=== PATIENT | female | born 1985 | race Caucasian/White ===

== ENCOUNTER 2016-12-21 22:40 | Emergency (ER) | payer MEDICAID ==
[2016-12-21] MEDS ORDERED: Sodium Chloride 0.9% 10 ML Syringe FLUSH PRN (23:12)
[2016-12-21] MEDS ORDERED: Sodium Chloride 0.9% 2.5 ML Syringe FLUSH PRN (23:12)
--- NOTE | 2016-12-21 23:23 | EDM.PDOC ---
ED HPI GI/ABDOMINAL - General Chief Complaint: Abdominal Pain Stated Complaint: GALLBLADDER PAIN Time Seen by Provider: 12/21/16 23:04 Source of Information: Reports: Patient History Limitations: Reports: No limitations - History of Present Illness INITIAL COMMENTS - FREE TEXT/NARRATIVE: History of present illness: [] Review of systems: 31-year-old female with a history of tubal ligation 10 days ago patient was in [place] expressed abdominal pain and had a CT and ultrasound of the abdomen which diagnosed her disease. Patient was stable and referred for outpatient followup when she returned home here shows an appointment tomorrow with her primary care for reevaluation and referral to surgery. Tonight she experienced identical symptoms of right upper quadrant pain after eating. She has nausea and vomiting. Denies fevers chills sweats or shaking chills. No lower abdominal tenderness specifically no right lower quadrant tenderness. Possibility of viable as she has had a tubal ligation in no diarrhea and normal urinary habits. No vaginal discharge or bleeding As per history of present illness and below otherwise all systems reviewed and negative. Past medical history: As per history of present illness and as reviewed below otherwise noncontributory. Surgical history: As per history of present illness and as reviewed below otherwise noncontributory. Social history: No reported history of drug or alcohol abuse. Family history: As per history of present illness and as reviewed below otherwise noncontributory. Physical exam: HEENT: Atraumatic, normocephalic, pupils reactive, negative for conjunctival pallor or scleral icterus, mucous membranes moist, throat clear, neck supple, nontender, trachea midline. Lungs: Clear to auscultation, breath sounds equal bilaterally, chest nontender. Heart: S1S2, regular, negative for clicks, rubs, or JVD. Abdomen: Soft, nondistended, positive right upper quadrant tenderness no guarding or rebound. Positive bowel sounds. Nondistended no mass or megaly palpable Negative for masses or hepatosplenomegaly. Negative for costovertebral tenderness. Pelvis: Stable nontender. Genitourinary: Deferred. Rectal: Deferred. Extremities: Atraumatic, negative for cords or calf pain. Neurovascular unremarkable. Neuro: Awake, alert, oriented. Motor and sensory unremarkable throughout. Exam nonfocal. Diagnostics: [] Therapeutics: [] Impression: [] Plan: [] Definitive disposition and diagnosis as appropriate pending reevaluation and review of above. - Related Data Allergies/ADRs: Allergies Allergy/AdvReac Type Severity Reaction Status Date / Time No Known Allergies Allergy Verified 12/21/16 23:15 Home Meds: Home Meds Sertraline HCl [Zoloft] 20 mg PO DAILY 12/21/16 [History] ED ROS GENERAL - Review of Systems Review Of Systems: See Below (Per history of present illness) ED EXAM, GI/ABD - Physical Exam Exam: See Below (Per history of present illness) Course - Vital Signs Text/Narrative:: Known history of gallbladder disease now with signs and symptoms consistent with gallbladder colic. Patient alert well-appearing no acute distress. Afebrile. Labs and ultrasound pending to reevaluate and rule out need for acute surgical intervention. IV fluids antiemetic anti-inflammatory meds ordered. Or sound completely negative for gallbladder or pancreatic abnormality. Comment bile duct normal. Labs totally unremarkable except late phase of her than 400. On reevaluation the patient entirely nontender in the entire abdomen specifically in the epigastrium and right upper quadrant. She is in no acute distress has normal vital signs she is smiling and comfortable with no complaints. Patient is very clear she's never been diagnosed with chronic pancreatitis or even initial set of pancreatitis. However on discussion with patient and her mother prior to discharge both offer that she's had recurrent episodes of upper abdominal pain that were never evaluated over the last several years. Given that her gallbladder is benign is not possible to have been caused by biliary colic. Patient aware that the only possibility is that she has chronic pancreatitis making her lipase greater than 400 despite the fact that she is not vomiting and nontender all. 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 eladia wallace is aware of history and findings and recommends that patient does not require further imaging or followup for HIDA were MRCP and that she has no evidence of obstructive disease and her chronic alcohol abuse explains her chronic pancreatitis etiology. Patient and mom agree with outpatient followup. Strict return precautions given Last Recorded V/S: Last Vital Signs Temp 36.9 C 12/22/16 02:20 Pulse 72 12/22/16 02:20 Resp 16 12/22/16 02:20 BP 114/67 12/22/16 02:20 Pulse Ox 98 12/22/16 02:20 - Orders/Labs/Meds Orders: Active Orders 24 hr Category Date Time Status Gallbladder [Abdomen Ltd] [US] Stat Exams 12/21/16 23:16 Taken Peripheral IV Insertion Adult [OM.PC] Stat Oth 12/21/16 23:13 Ordered Labs: Laboratory Tests 12/21/16 12/21/16 12/21/16 Range/Units 23:33 23:33 23:40 WBC 10.69 (4.0-11.0) K/uL RBC 4.53 (4.30-5.90) M/uL Hgb 14.2 (12.0-16.0) g/dL Hct 42.9 (36.0-46.0) % MCV 94.7 (80.0-98.0) fL MCH 31.3 (27.0-32.0) pg MCHC 33.1 (31.0-37.0) g/dL RDW Std Deviation 47.2 (28.0-62.0) fl RDW Coeff of Jermaine 14 (11.0-15.0) % Plt Count 228 (150-400) K/uL MPV 10.00 (7.40-12.00) fL Neut % (Auto) 86.3 H (48.0-80.0) % Lymph % (Auto) 6.0 L (16.0-40.0) % Hayes % (Auto) 6.8 (0.0-15.0) % Eos % (Auto) 0.7 (0.0-7.0) % Baso % (Auto) 0.2 (0.0-1.5) % Neut # 9.2 H (1.4-5.7) K/uL Lymph # 0.6 (0.6-2.4) K/uL Hayes # 0.7 (0.0-0.8) K/uL Eos # 0.1 (0.0-0.7) K/uL Baso # 0.0 (0.0-0.1) K/uL Nucleated RBC % 0.0 /100WBC Nucleated RBCs # 0 K/uL Sodium (136-146) mmol/L Potassium (3.5-5.1) mmol/L Chloride (98-110) mmol/L Carbon Dioxide (21-31) mmol/L BUN (6.0-23.0) mg/dL Creatinine (0.6-1.5) mg/dL Est Cr Clr Drug Dosing mL/min Estimated GFR (MDRD) ml/min Glucose (60-110) mg/dL Calcium (8.8-10.8) mg/dL Total Bilirubin (0.1-1.5) mg/dL AST (5-40) IU/L ALT (8-54) IU/L Alkaline Phosphatase (40-150) Total Protein (6.0-8.0) g/dL Albumin (3.5-5.0) g/dL Globulin (2.0-3.5) g/dL Albumin/Globulin Ratio (1.3-2.8) Lipase (7-80) U/L Urine Color YELLOW Urine Appearance CLEAR Urine pH 7.5 (5.0-8.0) Ur Specific [place] 1.010 (1.001-1.035) Urine Protein TRACE (NEGATIVE) mg/dL Urine Glucose (UA) NEGATIVE (NEGATIVE) mg/dL Urine Ketones 15 H (NEGATIVE) mg/dL Urine Occult Blood NEGATIVE (NEGATIVE) Urine Nitrite NEGATIVE (NEGATIVE) Urine Bilirubin NEGATIVE (NEGATIVE) Urine Urobilinogen 0.2 (<2.0) EU/dL Ur Leukocyte Esterase TRACE (NEGATIVE) Urine RBC 0-2 (0-2/HPF) Urine WBC 2-4 (0-5/HPF) Ur Epithelial Cells RARE (NONE-FEW) Urine Bacteria RARE (NEGATIVE) Urine Mucus MODERATE (NONE-MOD) Urine HCG, Qual NEGATIVE (NEGATIVE) 12/21/16 Range/Units 23:40 WBC (4.0-11.0) K/uL RBC (4.30-5.90) M/uL Hgb (12.0-16.0) g/dL Hct (36.0-46.0) % MCV (80.0-98.0) fL MCH (27.0-32.0) pg MCHC (31.0-37.0) g/dL RDW Std Deviation (28.0-62.0) fl RDW Coeff of Jermaine (11.0-15.0) % Plt Count (150-400) K/uL MPV (7.40-12.00) fL Neut % (Auto) (48.0-80.0) % Lymph % (Auto) (16.0-40.0) % Hayes % (Auto) (0.0-15.0) % Eos % (Auto) (0.0-7.0) % Baso % (Auto) (0.0-1.5) % Neut # (1.4-5.7) K/uL Lymph # (0.6-2.4) K/uL Hayes # (0.0-0.8) K/uL Eos # (0.0-0.7) K/uL Baso # (0.0-0.1) K/uL Nucleated RBC % /100WBC Nucleated RBCs # K/uL Sodium 140 (136-146) mmol/L Potassium 4.0 (3.5-5.1) mmol/L Chloride 100 (98-110) mmol/L Carbon Dioxide 27 (21-31) mmol/L BUN 16 (6.0-23.0) mg/dL Creatinine 0.8 (0.6-1.5) mg/dL Est Cr Clr Drug Dosing 90.84 mL/min Estimated GFR (MDRD) > 60.0 ml/min Glucose 96 (60-110) mg/dL Calcium 9.0 (8.8-10.8) mg/dL Total Bilirubin 0.7 (0.1-1.5) mg/dL AST 26 (5-40) IU/L ALT 17 (8-54) IU/L Alkaline Phosphatase 41 (40-150) Total Protein 7.1 (6.0-8.0) g/dL Albumin 4.2 (3.5-5.0) g/dL Globulin 2.9 (2.0-3.5) g/dL Albumin/Globulin Ratio 1.4 (1.3-2.8) Lipase 424 H (7-80) U/L Urine Color Urine Appearance Urine pH (5.0-8.0) Ur Specific [place] (1.001-1.035) Urine Protein (NEGATIVE) mg/dL Urine Glucose (UA) (NEGATIVE) mg/dL Urine Ketones (NEGATIVE) mg/dL Urine Occult Blood (NEGATIVE) Urine Nitrite (NEGATIVE) Urine Bilirubin (NEGATIVE) Urine Urobilinogen (<2.0) EU/dL Ur Leukocyte Esterase (NEGATIVE) Urine RBC (0-2/HPF) Urine WBC (0-5/HPF) Ur Epithelial Cells (NONE-FEW) Urine Bacteria (NEGATIVE) Urine Mucus (NONE-MOD) Urine HCG, Qual (NEGATIVE) Meds: Medications Discontinued Medications Generic Name Dose Route Start Last Admin Trade Name Nakia PRN Reason Stop Dose Admin Sodium Chloride 1,000 mls @ 999 mls/hr 12/21/16 23:15 12/21/16 23:34 Normal Saline IV 999 mls/hr ASDIRECTED RUTH Administration Ketorolac Tromethamine 30 mg 12/21/16 23:12 12/21/16 23:35 Toradol IVPUSH 12/21/16 23:13 30 mg ONETIME ONE Administration Ondansetron HCl 4 mg 12/21/16 23:17 12/21/16 23:34 Zofran IVPUSH 12/21/16 23:18 4 mg ONETIME ONE Administration Sodium Chloride 10 ml 12/21/16 23:12 Saline Flush FLUSH ASDIRECTED PRN Keep Vein Open Sodium Chloride 2.5 ml 12/21/16 23:12 Saline Flush FLUSH ASDIRECTED PRN Keep Vein Open Departure - Departure Time of Disposition: 02:01 Disposition: Home, Self-Care 01 Condition: good Clinical Impression: Abdominal pain, Pancreatitis, chronic Instructions: Abdominal Pain, Adult, [id number] Referrals: PCP,None [Primary Care Provider] - Forms: ED Department Discharge Additional Instructions: The result of-year-old sounds are completely normal gallbladder tonight with no stones or evidence of blockage infection or inflammation. Your labs were completely normal except her lipase was very elevated at 424. Lipase is an enzyme manufactured by the pancreas and this very elevated result is suggestive of pancreatitis. Given that area of your pancreas is not tender at all right now and you have no evidence of inflammation on your ultrasound, suggests that you have chronic pancreatitis which would be a result of excessive alcohol use over a chronic timeframe. Followup with your Dr. discuss your elevated lipase of 424 and this diagnosis of apparent chronic pancreatitis. Return immediately for worsening abdominal pain intractable vomiting or fevers with abdominal pain , new severe or worsening symptoms - My Orders Last 24 Hours: My Active Orders 12/21/16 23:13 Peripheral IV Insertion Adult [OM.PC] Stat 12/21/16 23:16 Gallbladder [Abdomen Ltd] [US] Stat - Assessment/Plan Last 24 Hours: My Active Orders 12/21/16 23:13 Peripheral IV Insertion Adult [OM.PC] Stat 12/21/16 23:16 Gallbladder [Abdomen Ltd] [US] Stat
[2016-12-21] MEDS: Sodium Chloride 0.9% 1,000 ML IV SCH (23:34)
[2016-12-21] MEDS: Ondansetron 4 MG/2 ML SDV IVPUSH ONE (23:34)
[2016-12-21] MEDS: Ketorolac 30 MG/ML SDV IVPUSH ONE (23:35)
[2016-12-22 00:06] LABS: CHLORIDE,CL 100 mmol/L (98-110); SODIUM,NA 140 mmol/L (136-146)
[2016-12-22 02:27] VITALS: BP 114/67
--- NOTE | 2016-12-22 15:02 | US ---
EXAM DATE: 12/21/16 PATIENT'S AGE: 31 Patient: TAMERA ANDRADE Facility: [place], [place] Site . Site : 1985 Study: US Abdomen [id number] 12:34:54 AM Ordering Physician: Waldo Cat Final Report: INDICATION: Right upper quadrant pain. TECHNIQUE: Ultrasound abdomen limited. Sonographic images of the right upper quadrant were obtained using gauthier-scale and color Doppler images. COMPARISON: None. FINDINGS: Liver: Homogeneous in echotexture. No focal lesion. Gallbladder: No stones or sludge. Normal wall thickness. No pericholecystic fluid. Common bile duct: 4 mm. Pancreas: Unremarkable. Right kidney: 12.7 cm in length. Normal echotexture and cortex. No masses, stones, or hydronephrosis. IMPRESSION: Unremarkable right upper quadrant ultrasound. Dictated by Turner Galeana MD @ 12/22/2016 12:40:14 AM Dictated by: Turner Galeana MD @ 12/22/2016 00:40:33 (Electronic Signature) Report Signed by Proxy and Original Signed Document filed in the Medical Record. [facility] DIVISIONKasandra
== END 2016-12-22 02:27 | disposition home or self-care (01) ==
LOC: MW.ED 22:40
DX: K86.1 Other chronic pancreatitis (principal); R10.11 Right upper quadrant pain; Z79.899 Other long term (current) drug therapy
CPT/HCPCS: 36415; 76705; 80053; 81001; 81025; 83690; 85025; 96374; 96375; 99284; J1885; J2405; J7040

== ENCOUNTER 2017-01-18 08:22 | Day surgery (SDC) | payer MEDICAID ==
[~2017-01-18 08:22] MED LIST: Lactated Ringers 1,000 ML IV SCH; Lidocaine 2% 5 ML SDV ONE; Propofol 200 MG/20 ML SDV ONE
--- NOTE | 2017-01-18 08:40 | PCM.PREANE ---
Preanesthetic Assessment - Anesthesia/Transfusion/Family Hx Anesthesia History: Prior Anesthesia Without Reaction Type of Anesthesia Reaction: Other (see below) (none) Family History of Anesthesia Reaction: No Transfusion History: No Prior Transfusion(s) - Review of Systems General: No Symptoms Pulmonary: No Symptoms Cardiovascular: No Symptoms Neurological: No Symptoms Other: Reports: None - Physical Assessment O2 Sat by Pulse Oximetry: 99 Respiratory Rate: 16 Vital Signs: Last Vital Signs Temp 36.6 C 01/18/17 08:27 Pulse 85 01/18/17 08:27 Resp 16 01/18/17 08:27 BP 117/67 01/18/17 08:27 Pulse Ox 99 01/18/17 08:27 Height: 1.65 m Weight: 65.771 kg ASA Class: 2 Mental Status: Alert & Oriented x3 Airway Class: Mallampati = 2 Dentition: Reports: Normal Dentition Thyro-Mental Finger Breadths: 3 Mouth Opening Finger Breadths: 3 ROM/Head Extension: Full Lungs: Clear to auscultation, Normal respiratory effort Cardiovascular: Regular Rate, Regular Rhythm - Allergies Allergies/Adverse Reactions: Allergies Allergy/AdvReac Type Severity Reaction Status Date / Time No Known Allergies Allergy Verified 12/21/16 23:15 - Blood Blood Available: No - Anesthesia Plan Pre-Op Medication Ordered: None - Acknowledgements Anesthesia Type Planned: MAC Pt an Appropriate Candidate for the Planned Anesthesia: Yes Alternatives and Risks of Anesthesia Discussed w Pt/Guardian: Yes Pt/Guardian Understands and Agrees with Anesthesia Plan: Yes PreAnesthesia Questionnaire - Past Health History Medical/Surgical History: Denies Medical/Surgical History Gastrointestinal History: Reports: Other (see below) Other Gastrointestinal History: presently c/o rt upper quad pain that radiates to her back Genitourinary History: Reports: None [employer] History: Reports: PID, 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 History: Reports: Other (see below) Other 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 History: neck and shoulder pain Psychiatric History: Reports: Anxiety, Depression - Infectious Disease History Infectious Disease History: Reports: Chicken pox - Past Surgical History Head Surgeries/Procedures: Reports: None Female Surgical History: Reports: section, Tubal ligation Other Female Surgeries/Procedures: x 4 - SUBSTANCE USE Smoking Status *Q: Current Every Day Smoker (1/2 ppd) Days Per Week of Alcohol Use: 1 Number of Drinks Per Day: 4 Total Drinks Per Week: 4 Recreational Drug Use History: No - HOME MEDS Home Medications: Home Meds Sertraline HCl [Zoloft] 20 mg PO DAILY 12/21/16 [History] Olopatadine [Patanol 0.1% Ophth Soln] 1 drop EYEBOTH BID 01/13/17 [History] Promethazine HCl 1 tab PO ASDIRECTED PRN 01/13/17 [History] - CURRENT (IN HOUSE) MEDS Current Meds: Current Medications Lactated Ringer's (Ringers, Lactated) 1,000 mls @ 125 mls/hr IV ASDIRECTED RUTH Last Admin: 01/18/17 08:32 Dose: 125 mls/hr Discontinued Medications Lidocaine (Xylocaine-Mpf 2%) Confirm Administered Dose 5 ml .ROUTE .STK-MED ONE Stop: 01/18/17 07:27 Propofol (Diprivan 20 Ml) Confirm Administered Dose 400 mg .ROUTE .STK-MED ONE Stop: 01/18/17 07:27
[2017-01-18] MEDS ORDERED: Propofol 200 MG/20 ML SDV ONE (09:24)
--- NOTE | 2017-01-18 09:54 | PCM.OPNOTE ---
- General Post-Op/Procedure Note Date of Surgery/Procedure: 01/18/17 Operative Procedure(s): egd w bx. colonoscopy w bx Findings: see dict [id number] Pre Op Diagnosis: abd pain Post-Op Diagnosis: Same Anesthesia Technique: Moderate sedation Primary Surgeon: Bakari Mario Pathology: egd bx colon random bx Complications: None Condition: Good
[2017-01-18] MEDS: fentaNYL 100 MCG/2 ML SDV IVPUSH PRN ×2 (09:57→10:02)
--- NOTE | 2017-01-18 10:04 | PCM.POSTAN ---
POST ANESTHESIA ASSESSMENT - MENTAL STATUS Mental Status: alert, oriented - RESPIRATORY Respiratory Status: respiratory rate WNL, airway patent, O2 saturation stable - CARDIOVASCULAR CV Status: pulse rate WNL, blood pressure stable - GASTROINTESTINAL GI Status: no symptoms - POST OP HYDRATION Hydration Status: adequate & stable - OBSERVATIONS Free Text/Narrative:: no anesthesia problems
[2017-01-18 10:16] VITALS: BP 104/69
--- NOTE | 2017-01-18 14:04 | OR ---
SURGEON: Bakari Mario MD DATE OF PROCEDURE: 01/18/2017 PREOPERATIVE DIAGNOSIS: Abdominal pain. POSTOPERATIVE DIAGNOSES: Gastritis and hemorrhoids. PROCEDURE PERFORMED: 1. EGD with biopsy. 2. Colonoscopy with biopsy. DESCRIPTION OF PROCEDURE: EGD: The patient was taken to the endoscopy room, and with the FIELD MECHANIC, Diprivan was administered. A well-lubricated EGD scope was gently inserted through the oropharynx, down the esophagus, passing through the gastroesophageal junction, into the stomach. The mucosa was examined upon the passage. Any etiology will be noted. Once in the stomach, we continued to advance to the distal antrum, passed through the pylorus into the second portion of the duodenum. Again, the mucosa was examined for any abnormality and etiology. The scope was then retrieved back to the stomach and then retroflexed to look at the fundus of the stomach. If a biopsy was indicated, we will biopsy the antrum, body, and gastroesophageal junction. The air will be sucked out while the scope is retrieved to reduce the patient's discomfort. The patient tolerated the procedure well. There were no intraoperative complications. Dr. Mario was present through the whole procedure. Prior to surgery, a time-out had been called, the patient identified, procedure identified and antibiotic administered. COLONOSCOPY: The patient was taken to the endoscopy room. A time out was called, patient identified, and procedure identified. Diprivan was then administrated. Patient went from awake to sleep, hearing doctor talking or door closing is normal. Perineum inspection and digital examination were then performed. A well-lubricated colonoscope was gently inserted through the rectum, advanced past the rectosigmoid junction, the descending colon, splenic flexure, transverse colon, hepatic flexure, ascending colon, arrived to the cecum. Cecum was identified as dictated in the finding. Then the scope was carefully withdrawn while attention was paid to the mucosal surface for any abnormality. Air will be sucked out during the scope withdrawal. At the rectum, retroflexed to examine any rectal diseases, fistula or hemorrhoids. During mucosal examination, picture taken and biopsy performed. Patient tolerated procedure well. There were no intraoperative complications, and Dr. Mario was present throughout the whole procedure. FINDING: EGD finding: The patient was easily sedated with FIELD MECHANIC and Diprivan. The patient was soundly snoring. Proximal esophagus was grossly normal in appearance. Distal esophagus shows moderate amount of salmon-colored change consistent with acid reflux. Stomach rugae was normal in appearance, and there was no food particle or bile observed. Antrum was inflamed, and no blood or ulceration observed. Duodenum was grossly normal in appearance, and the scope was retrieved back to the stomach. Retroflexion look at the fundus of stomach, and the patient does have very small hiatal hernia. Biopsy done at antrum, body. GE junction at 40 and sucked out air while scope pulling out. Colonoscopy finding: The patient was easily sedated with FIELD MECHANIC and Diprivan. The patient was soundly snoring. Bowel prep was average with some liquid stool. No semi-formed stool. Colon is rather straightforward, and cecum indicated by ileocecal fold, one-to-one indentation, appendiceal orifice. Light immittance is not observed. Mucosa examined upon scope pulling out. The patient does not have polyp, diverticulosis, mass, inflammation, stricture, ulceration, bleeding, AV malformation observed. The patient does not have external hemorrhoid. The patient does have mild internal hemorrhoids. The patient would benefit from repeat colonoscopy 10 years from today or if clinically indicated otherwise. Thank you for the kind referral. TAMMY / IDANIA /[id number] AHSAN
== END 2017-01-18 10:44 | disposition home or self-care (01) ==
LOC: MW.SDS 08:22
PROVIDERS: ATTEND Surgery
PROC: 0DB48ZX Excision of Esophagogastric Junction, Via Natural or Artificial Opening Endoscopic, Diagnostic (ICD-10-PCS; principal; 2017-01-18)
PROC: 0DB68ZX Excision of Stomach, Via Natural or Artificial Opening Endoscopic, Diagnostic (ICD-10-PCS; 2017-01-18)
PROC: 0DBE8ZX Excision of Large Intestine, Via Natural or Artificial Opening Endoscopic, Diagnostic (ICD-10-PCS; 2017-01-18)
DX: K20.9 Esophagitis, unspecified (principal); K44.9 Diaphragmatic hernia without obstruction or gangrene; K64.4 Residual hemorrhoidal skin tags; K64.8 Other hemorrhoids; F17.210 Nicotine dependence, cigarettes, uncomplicated; Z98.51 Tubal ligation status; Z98.890 Other specified postprocedural states; Z79.899 Other long term (current) drug therapy
CPT/HCPCS: 43239; 45380; 81025; J3010; J7120; 00740; 88305; 88312; J2704

== ENCOUNTER → 2017-01-31 | Outpatient (CLI) | payer MEDICAID ==
--- NOTE | 2017-01-31 14:56 | NM ---
EXAMINATION: Nuclear medicine hepatobiliary study (HIDA) with cholecystokinin (calculation of gallbl adder ejection fraction for function). HISTORY: Abnormal weight loss. PROCEDURE: Following intravenous administration of 3.7 mCi of technetium 99m Choletec, dynamic images were ob tained up to one-hour post injection. This is followed by slow intravenous administration of 1.3 mcg of CCK and additional dynamic images were obtained. Gallbladder ejection fraction is calculated. FINDINGS: The initial dynamic images demonstrates clearance of the tracer from the blood pool with the prompt tracer uptake by the liver. By 15 minutes tracer activity is noted in the gallbladder. The post CCK images demonstrates optimal contraction of the gallbladder with ejection fraction of 89 percent (nor mal is equal or more than 35%). Tracer activity is noted in the small intestine following CCK admini stration. IMPRESSION: 1. Patent cystic and common bile ducts. Normal liver function. 2. Normal gallbladder ejection fraction following CCK administration ( 89 %; normal equal or more t virk 35%).
== END ==
LOC: MW.NM 13:01
PROVIDERS: ATTEND Surgery
DX: R63.4 Abnormal weight loss (principal)
CPT/HCPCS: 78227; A9537; J2805

== ENCOUNTER → 2017-02-14 | Outpatient (CLI) | payer MEDICAID | LOC: MW.CHOBGYN 10:49 | PROVIDERS: ATTEND Nurse Practitioner Women's Health | DX: R10.2 Pelvic and perineal pain (principal); N89.8 Other specified noninflammatory disorders of vagina | CPT/HCPCS: 81001; 81025; 87480; 87491; 87510; 87591; 87660 ==

== ENCOUNTER → 2017-02-16 | Outpatient (CLI) | payer MEDICAID ==
--- NOTE | 2017-02-16 16:09 | US ---
EXAMINATION: Transvaginal pelvic ultrasound HISTORY: Pain COMPARISON: None TECHNIQUE: Grayscale, color Doppler, and spectral Doppler images obtained transvaginally. FINDINGS: The uterus appears normal in size, contour, and echogenicity without a focal uterine mass. Endometrial stripe thickness measures 1.3 cm. Both the left and right ovaries are normal in size, contour and echogenicity demonstrating normal co rodolfo and spectral Doppler flow. No adnexal masses. No significant free pelvic fluid. IMPRESSION: Unremarkable pelvic ultrasound.
== END ==
LOC: MW.US 14:06
PROVIDERS: ATTEND Nurse Practitioner Women's Health
DX: R10.2 Pelvic and perineal pain (principal)
CPT/HCPCS: 76830; 76830-26

== ENCOUNTER 2017-03-10 11:24 | Emergency (ER) | payer MEDICAID ==
[2017-03-10] MEDS ORDERED: Sodium Chloride 0.9% 10 ML Syringe FLUSH PRN (12:14)
[2017-03-10] MEDS ORDERED: Sodium Chloride 0.9% 2.5 ML Syringe FLUSH PRN (12:14)
--- NOTE | 2017-03-10 12:14 | EDM.PDOC ---
ED HPI GENERAL MEDICAL PROBLEM - General Chief Complaint: Abdominal Pain Stated Complaint: PANCREATITIS Time Seen by Provider: 03/10/17 12:08 Source of Information: Reports: Patient History Limitations: Reports: No Limitations - History of Present Illness INITIAL COMMENTS - FREE TEXT/NARRATIVE: HISTORY AND PHYSICAL: []31-year-old female presents with left upper quadrant pain she has known history of pancreatitis History of Present Illness: [Patient was in [place] for her child's dental appointment when the pain started Patient lives in [place] and has a appointment with the specialist for nuclear testing on the of this month] Pancreatitis likely initiated by alcohol intake in the past, she states she has not had anything to drink in several months Review of Systems: As per history of present illness and below otherwise all systems reviewed and negative. Past medical history: As per history of present illness and as reviewed below otherwise noncontributory. Surgical history: As per history of present illness and as reviewed below otherwise noncontributory. Social history: No reported history of drug or alcohol abuse. Family history: As per history of present illness and as reviewed below otherwise noncontributory. Physical exam: Alert and oriented answer questions appropriately denies any alcohol intake denies any cold medicine or similar products HEENT: Atraumatic, normocehpalic, pupils reactive, negative for conjunctival pallor or scleral icterus, mucous membranes moist, throat clear, neck supple, nontender, trachea midline. Lungs: Clear to auscultation, breath sounds equal bilaterally, chest non tender. Heart: S1S2, regular, negative for clicks, rubs, or JVD. Abdomen: Soft, nondistended, tender left upper quadrant. Negative for masses or hepatossplenmegaly. Negative for costovertebral tenderness. Pelvis: Stable nontender. Genitourinary: Deferred. Rectal: Deferred Extremities: Atraumatic, negative for cords or calf pain. Neurovascular unremarkable. Neuro: Awake, alert, oriented. Cranial nerves II through XII unremarkable. Cerebellum unremarkable. Motor and sensory unremarkable throughout. Exam nonfocal. Diagnostics: [CBC CMP amylase lipase ] Therapeutics: [Normal saline] Impression: [Alcohol-induced pancreatitis] Plan: [Clear liquids Nexium 20 mg twice a day] Definitive disposition and diagnosis as appropriate pending reevaluation and review of above. Onset: Today, Sudden Duration: Hour(s): (1), Getting Worse Location: Reports: Abdomen Upper Abdomen Pain Score (Numeric/FACES): 7 - Related Data Allergies Allergy/AdvReac Type Severity Reaction Status Date / Time No Known Allergies Allergy Verified 03/10/17 12:05 Home Meds: Home Meds Sertraline HCl [Zoloft] 20 mg PO DAILY 12/21/16 [History] Promethazine HCl 1 tab PO ASDIRECTED PRN 01/13/17 [History] Ondansetron HCl [Zofran] 4 mg PO BID PRN 03/10/17 [History] oxyCODONE HCl/Acetaminophen [Percocet 10-325 mg Tablet] 10 - 325 mg PO DAILY PRN 03/10/17 [History] Past Medical History - Past Health History Medical/Surgical History: Denies Medical/Surgical History Gastrointestinal History: Reports: Other (See Below) Other Gastrointestinal History: Gallstones Genitourinary History: Reports: None 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, 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 History: Reports: Other (See Below) Other 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 History: neck and shoulder pain Psychiatric History: Reports: Anxiety, Depression - Infectious Disease History Infectious Disease History: Reports: Chicken Pox - Past Surgical History Female Surgical History: Reports: Section Social & Family History - Family History Family Medical History: Noncontributory - Tobacco Use Smoking Status *Q: Current Every Day Smoker (1/2 ppd) Years of Tobacco use: 10 Packs/Tins Daily: 0.5 - Caffeine Use Caffeine Use: Reports: None Caffeine Use Comment: 1 cup/day - Alcohol Use Days Per Week of Alcohol Use: 1 Number of Drinks Per Day: 4 Total Drinks Per Week: 4 - Recreational Drug Use Recreational Drug Use: No ED ROS GENERAL - Review of Systems Review Of Systems: ROS reveals no pertinent complaints other than HPI. ED EXAM, GI/ABD - Physical Exam Exam: See Below Course - Vital Signs Last Recorded V/S: Last Vital Signs Temp 36.3 C 03/10/17 12:01 Pulse 69 03/10/17 12:01 Resp 19 03/10/17 12:01 BP 131/81 03/10/17 12:01 Pulse Ox 98 03/10/17 12:01 - Orders/Labs/Meds Orders: Active Orders 24 hr Category Date Time Status Sodium Chloride 0.9% [Saline Flush] Med 03/10/17 12:14 Active 10 ml FLUSH ASDIRECTED PRN Sodium Chloride 0.9% [Saline Flush] Med 03/10/17 12:14 Active 2.5 ml FLUSH ASDIRECTED PRN Saline Lock Insert [OM.PC] Stat Oth 03/10/17 12:14 Ordered Medication Orders Sodium Chloride (Saline Flush) 10 ml FLUSH ASDIRECTED PRN PRN Reason: Keep Vein Open Last Admin: 03/10/17 12:52 Dose: 10 ml Sodium Chloride (Saline Flush) 2.5 ml FLUSH ASDIRECTED PRN PRN Reason: Keep Vein Open Last Admin: 03/10/17 12:52 Dose: 2.5 ml Labs: Laboratory Tests 03/10/17 03/10/17 03/10/17 Range/Units 12:00 12:00 12:05 WBC 11.01 H (4.0-11.0) K/uL RBC 4.33 (4.30-5.90) M/uL Hgb 13.3 (12.0-16.0) g/dL Hct 40.6 (36.0-46.0) % MCV 93.8 (80.0-98.0) fL MCH 30.7 (27.0-32.0) pg MCHC 32.8 (31.0-37.0) g/dL RDW Std Deviation 46.8 (28.0-62.0) fl RDW Coeff of Jermaine 14 (11.0-15.0) % Plt Count 252 (150-400) K/uL MPV 10.10 (7.40-12.00) fL Neut % (Auto) 75.8 (48.0-80.0) % Lymph % (Auto) 15.6 L (16.0-40.0) % [place] % (Auto) 6.9 (0.0-15.0) % Eos % (Auto) 1.5 (0.0-7.0) % Baso % (Auto) 0.2 (0.0-1.5) % Neut # (Auto) 8.3 H (1.4-5.7) K/uL Lymph # (Auto) 1.7 (0.6-2.4) K/uL [place] # (Auto) 0.8 (0.0-0.8) K/uL Eos # (Auto) 0.2 (0.0-0.7) K/uL Baso # (Auto) 0.0 (0.0-0.1) K/uL Nucleated RBC % 0.0 /100WBC Nucleated RBCs # 0 K/uL Sodium 140 (136-146) mmol/L Potassium 3.7 (3.5-5.1) mmol/L Chloride 107 (98-110) mmol/L Carbon Dioxide 24 (21-31) mmol/L BUN 16 (6.0-23.0) mg/dL Creatinine 0.8 (0.6-1.5) mg/dL Est Cr Clr Drug Dosing 90.84 mL/min Estimated GFR (MDRD) > 60.0 ml/min Glucose 119 H (60-110) mg/dL Calcium 8.5 L (8.8-10.8) mg/dL Total Bilirubin 0.6 (0.1-1.5) mg/dL AST 24 (5-40) IU/L ALT 14 (8-54) IU/L Alkaline Phosphatase 37 L (40-150) Total Protein 6.6 (6.0-8.0) g/dL Albumin 4.1 (3.5-5.0) g/dL Globulin 2.5 (2.0-3.5) g/dL Albumin/Globulin Ratio 1.6 (1.3-2.8) Amylase 90 (10-90) U/L Lipase 300 H (7-80) U/L Urine Color YELLOW Urine Appearance CLEAR Urine pH 7.0 (5.0-8.0) Ur Specific [place] 1.020 (1.001-1.035) Urine Protein NEGATIVE (NEGATIVE) mg/dL Urine Glucose (UA) NEGATIVE (NEGATIVE) mg/dL Urine Ketones NEGATIVE (NEGATIVE) mg/dL Urine Occult Blood NEGATIVE (NEGATIVE) Urine Nitrite NEGATIVE (NEGATIVE) Urine Bilirubin NEGATIVE (NEGATIVE) Urine Urobilinogen 0.2 (<2.0) EU/dL Ur Leukocyte Esterase NEGATIVE (NEGATIVE) Urine RBC NONE SEEN (0-2/HPF) Urine WBC 0-1 (0-5/HPF) Ur Epithelial Cells RARE (NONE-FEW) Amorphous Sediment HEAVY (NEGATIVE) Urine Bacteria FEW (NEGATIVE) Urine Mucus HEAVY (NONE-MOD) Meds: Medications Generic Name Dose Route Start Last Admin Trade Name Freq PRN Reason Stop Dose Admin Sodium Chloride 10 ml 03/10/17 12:14 03/10/17 12:52 Saline Flush FLUSH 10 ml ASDIRECTED PRN Administration Keep Vein Open Sodium Chloride 2.5 ml 03/10/17 12:14 03/10/17 12:52 Saline Flush FLUSH 2.5 ml ASDIRECTED PRN Administration Keep Vein Open Discontinued Medications Generic Name Dose Route Start Last Admin Trade Name Freq PRN Reason Stop Dose Admin Ketorolac Tromethamine 30 mg 03/10/17 12:15 03/10/17 12:27 Toradol IVPUSH 03/10/17 12:16 30 mg ONETIME ONE Administration Ondansetron HCl 4 mg 03/10/17 12:15 03/10/17 12:25 Zofran IVPUSH 03/10/17 12:16 4 mg ONETIME ONE Administration Ondansetron HCl 4 mg 03/10/17 12:43 03/10/17 12:52 Zofran IVPUSH 03/10/17 12:44 4 mg ONETIME ONE Administration Departure - Departure Time of Disposition: 15:01 Disposition: Home, Self-Care 01 Condition: good Clinical Impression: Pancreatitis Qualifiers: Chronicity: acute Pancreatitis type: alcohol induced Acute pancreatitis complication: unspecified Qualified Code(s): K85.20 - Alcohol induced acute pancreatitis without necrosis or infection - Discharge Information Instructions: Abdominal Pain, Adult, [id number] Forms: ED Department Discharge Additional Instructions: The following information is given to patients seen in the emergency department who are being discharged to home. This information is to outline your options for follow-up care. We provide all patients seen in our emergency department with a follow-up referral. The need for follow-up, as well as the timing and circumstances, are variable depending upon the specifics of your emergency department visit. If you don't have a primary care physician on staff, we will provide you with a referral. We always advise you to contact your personal physician following an emergency department visit to inform them of the circumstance of the visit and for follow-up with them and/or the need for any referrals to a consulting specialist. The emergency department will also refer you to a specialist when appropriate. This referral assures that you have the opportunity for followup care with a specialist. All of these measure are taken in an effort to provide you with optimal care, which includes your followup. Under all circumstances we always encourage you to contact your private physician who remains a resource for coordinating your care. When calling for followup care, please make the office aware that this follow-up is from your recent emergency room visit. If for any reason you are refused follow-up, please contact the [facility] emergency department at and asked to speak to the emergency department charge nurse. Clear liquids until pain resolves Nexium 40 mg twice a day #30 no refill - My Orders Last 24 Hours: My Active Orders 03/10/17 12:14 Sodium Chloride 0.9% [Saline Flush] 10 ml FLUSH ASDIRECTED PRN Sodium Chloride 0.9% [Saline Flush] 2.5 ml FLUSH ASDIRECTED PRN Saline Lock Insert [OM.PC] Stat - Assessment/Plan Last 24 Hours: My Active Orders 03/10/17 12:14 Sodium Chloride 0.9% [Saline Flush] 10 ml FLUSH ASDIRECTED PRN Sodium Chloride 0.9% [Saline Flush] 2.5 ml FLUSH ASDIRECTED PRN Saline Lock Insert [OM.PC] Stat
[2017-03-10] MEDS ORDERED: Ondansetron 4 MG/2 ML SDV IVPUSH ONE ×2 (12:15→12:43)
[2017-03-10] MEDS ORDERED: Ketorolac 30 MG/ML SDV IVPUSH ONE (12:15)
[2017-03-10 12:41] LABS: CHLORIDE,CL 107 mmol/L (98-110); SODIUM,NA 140 mmol/L (136-146)
--- NOTE | 2017-03-10 14:51 | CT ---
CT of the abdomen and pelvis with contrast. HISTORY: Pain TECHNIQUE: Axial CT images were obtained of the abdomen and pelvis following administration of 100 m L of Isovue-370 in the right antecubital fossa without complication. Coronal and sagittal reconstruc tions obtained. FINDINGS: The lung bases are clear, no pleural effusion. There is a tiny 4 mm nodule within the left lung base . The liver, spleen, adrenal glands, and pancreas appear normal. The gallbladder appears normal. There is no bulky retroperitoneal lymphadenopathy or abdominal ascites. There is vague soft tissue promin ence within the left periaortic retroperitoneum. The kidneys enhance and function symmetrically without evidence of obstructive uropathy. Tiny renal cysts are noted bilaterally. The large and small bowel are normal in caliber without evidence of obstruction. No pericolonic infl ammation or stranding. The appendix appears normal. The Uterus and ovaries appear normal. The urinar y bladder is normal. No suspicious osseous abnormalities identified. IMPRESSION: No acute findings identified within the abdomen or pelvis.
[2017-03-10 15:03] VITALS: BP 122/89
[2017-03-10] MEDS ORDERED: Iopamidol 755 MG/ML 500 ML Multipack Bottle IVPUSH STA (17:52)
== END 2017-03-10 15:08 | disposition home or self-care (01) ==
LOC: MW.ED 11:24
DX: K85.20 Alcohol induced acute pancreatitis without necrosis or infection (principal); F41.9 Anxiety disorder, unspecified; F32.9 Major depressive disorder, single episode, unspecified; F17.210 Nicotine dependence, cigarettes, uncomplicated; Z79.899 Other long term (current) drug therapy
CPT/HCPCS: 36415; 74177; 80053; 81001; 82150; 83690; 85025; 96374; 96375; 99284; J1885; J2405; Q9967

== ENCOUNTER 2017-07-26 03:17 | Emergency (ER) | payer MEDICAID ==
[2017-07-26] MEDS ORDERED: Ondansetron 4 MG/2 ML SDV IVPUSH ONE (03:42)
[2017-07-26] MEDS ORDERED: Pantoprazole 40 MG in Sodium Chloride 0.9% 10 ML IVPUSH ONE (03:42)
[2017-07-26] MEDS ORDERED: Sodium Chloride 0.9% 1,000 ML IV SCH (03:45)
[2017-07-26 04:06] LABS: CHLORIDE,CL 109 mmol/L (98-110); SODIUM,NA 143 mmol/L (136-146)
[2017-07-26] MEDS ORDERED: Iopamidol 755 MG/ML 500 ML Multipack Bottle IVPUSH STA (04:55)
[2017-07-26] MEDS ORDERED: Thiamine 200 MG/2 ML MDV IM ONE (05:27)
--- NOTE | 2017-07-26 05:27 | EDM.PDOC ---
ED HPI GENERAL MEDICAL PROBLEM - General Chief Complaint: Abdominal Pain Stated Complaint: SICK Time Seen by Provider: 07/26/17 05:26 - History of Present Illness INITIAL COMMENTS - FREE TEXT/NARRATIVE: HISTORY AND PHYSICAL: History of present illness: Patient is a 32-year-old female with history of chronic alcohol abuse presents with concern of abdominal pain and vomiting she's had prior pancreatitis she drinks about a fifth a day of vodka she denies fever chills she's had some nausea and vomiting denies trauma denies other complaints or concerns she is agreeable to detox Review of systems: As per history of present illness and below otherwise all systems reviewed and negative. Past medical history: As per history of present illness and as reviewed below otherwise noncontributory. Surgical history: As per history of present illness and as reviewed below otherwise noncontributory. Social history: No reported history of drug or alcohol abuse. Family history: As per history of present illness and as reviewed below otherwise noncontributory. Physical exam: HEENT: Atraumatic, normocephalic, pupils reactive, negative for conjunctival pallor or scleral icterus, mucous membranes dry, throat clear, neck supple, nontender, trachea midline. Lungs: Clear to auscultation, breath sounds equal bilaterally, chest nontender. Heart: S1S2, regular, negative for clicks, rubs, or JVD. Abdomen: Soft, nondistended, mild nonlocalized tenderness Negative for masses or hepatosplenomegaly. Negative for costovertebral tenderness. Pelvis: Stable nontender. Genitourinary: Deferred. Rectal: Deferred. Extremities: Atraumatic, negative for cords or calf pain. Neurovascular unremarkable. Neuro: Awake, alert, oriented. Cranial nerves II through XII unremarkable. Cerebellum unremarkable. Motor and sensory unremarkable throughout. Exam nonfocal. Diagnostics: CBC CMP amylase lipase HEG CT abdomen and pelvis UA EtOH Therapeutics: Normal saline 1 L bolus Zofran 4 mg IV Impression: #1 alcohol abuse #2 mild pancreatitis Definitive disposition and diagnosis as appropriate pending reevaluation and review of above. abdomen Pain Score (Numeric/FACES): 5 - Related Data Allergies Allergy/AdvReac Type Severity Reaction Status Date / Time No Known Allergies Allergy Verified 07/26/17 03:24 Home Meds: Home Meds Sertraline HCl [Zoloft] 20 mg PO DAILY 12/21/16 [History] Promethazine HCl 1 tab PO ASDIRECTED PRN 01/13/17 [History] Ondansetron HCl [Zofran] 4 mg PO BID PRN 03/10/17 [History] oxyCODONE HCl/Acetaminophen [Percocet 10-325 mg Tablet] 10 - 325 mg PO DAILY PRN 03/10/17 [History] Past Medical History - Past Health History Medical/Surgical History: Denies Medical/Surgical History Gastrointestinal History: Reports: Pancreatitis, Other (See Below) Other Gastrointestinal History: Gallstones Genitourinary History: Reports: None 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, 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 History: Reports: Other (See Below) Other 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 History: neck and shoulder pain Psychiatric History: Reports: Anxiety, Depression - Infectious Disease History Infectious Disease History: Reports: Chicken Pox - Past Surgical History Head Surgeries/Procedures: Reports: None Female Surgical History: Reports: Section Social & Family History - Family History Family Medical History: Noncontributory - Tobacco Use Smoking Status *Q: Current Every Day Smoker Years of Tobacco use: 20 Packs/Tins Daily: 1 - Caffeine Use Caffeine Use: Reports: None Caffeine Use Comment: 1 cup/day - Alcohol Use Days Per Week of Alcohol Use: 1 Number of Drinks Per Day: 4 Total Drinks Per Week: 4 - Recreational Drug Use Recreational Drug Use: No ED ROS GENERAL - Review of Systems Review Of Systems: ROS reveals no pertinent complaints other than HPI. ED EXAM, GENERAL - Physical Exam Exam: See Below (See dictation) Course - Vital Signs Last Recorded V/S: Last Vital Signs Temp 36.9 C 07/26/17 03:17 Pulse 90 07/26/17 03:17 Resp 18 07/26/17 03:17 BP 120/87 07/26/17 03:17 Pulse Ox 100 07/26/17 03:17 - Orders/Labs/Meds Orders: Active Orders 24 hr Category Date Time Status Abdomen Pelvis w Cont [CT] Stat Exams 07/26/17 03:42 Taken Blood Alcohol [ETHANOL BLOOD MEDICAL] [CHEM] Stat Lab 07/26/17 03:32 Received Sodium Chloride 0.9% [Normal Saline] 1,000 ml Med 07/26/17 03:45 Active IV ASDIRECTED Medication Orders Sodium Chloride (Normal Saline) 1,000 mls @ 999 mls/hr IV ASDIRECTED RUTH Last Admin: 07/26/17 03:49 Dose: 999 mls/hr Labs: Laboratory Tests 07/26/17 07/26/17 07/26/17 Range/Units 03:32 03:32 03:35 WBC 8.49 (4.0-11.0) K/uL RBC 4.49 (4.30-5.90) M/uL Hgb 13.9 (12.0-16.0) g/dL Hct 41.2 (36.0-46.0) % MCV 91.8 (80.0-98.0) fL MCH 31.0 (27.0-32.0) pg MCHC 33.7 (31.0-37.0) g/dL RDW Std Deviation 44.5 (28.0-62.0) fl RDW Coeff of Jermaine 13 (11.0-15.0) % Plt Count 294 (150-400) K/uL MPV 10.60 (7.40-12.00) fL Neut % (Auto) 53.2 (48.0-80.0) % Lymph % (Auto) 36.9 (16.0-40.0) % [place] % (Auto) 7.5 (0.0-15.0) % Eos % (Auto) 2.0 (0.0-7.0) % Baso % (Auto) 0.4 (0.0-1.5) % Neut # (Auto) 4.5 (1.4-5.7) K/uL Lymph # (Auto) 3.1 H (0.6-2.4) K/uL [place] # (Auto) 0.6 (0.0-0.8) K/uL Eos # (Auto) 0.2 (0.0-0.7) K/uL Baso # (Auto) 0.0 (0.0-0.1) K/uL Nucleated RBC % 0.0 /100WBC Nucleated RBCs # 0 K/uL Sodium 143 (136-146) mmol/L Potassium 3.9 (3.5-5.1) mmol/L Chloride 109 (98-110) mmol/L Carbon Dioxide 26 (21-31) mmol/L BUN 10 (6.0-23.0) mg/dL Creatinine 0.7 (0.6-1.5) mg/dL Est Cr Clr Drug Dosing TNP Estimated GFR (MDRD) > 60.0 ml/min Glucose 97 (60-110) mg/dL Calcium 8.5 L (8.8-10.8) mg/dL Total Bilirubin 0.2 (0.1-1.5) mg/dL AST 32 (5-40) IU/L ALT 13 (8-54) IU/L Alkaline Phosphatase 41 (40-150) Total Protein 7.3 (6.0-8.0) g/dL Albumin 4.2 (3.5-5.0) g/dL Globulin 3.1 (2.0-3.5) g/dL Albumin/Globulin Ratio 1.4 (1.3-2.8) Amylase 73 (10-90) U/L Lipase 149 H (7-80) U/L Urine Color Urine Appearance Urine pH (5.0-8.0) Ur Specific [place] (1.001-1.035) Urine Protein (NEGATIVE) mg/dL Urine Glucose (UA) (NEGATIVE) mg/dL Urine Ketones (NEGATIVE) mg/dL Urine Occult Blood (NEGATIVE) Urine Nitrite (NEGATIVE) Urine Bilirubin (NEGATIVE) Urine Urobilinogen (<2.0) EU/dL Ur Leukocyte Esterase (NEGATIVE) Urine RBC (0-2/HPF) Urine WBC (0-5/HPF) Ur Epithelial Cells (NONE-FEW) Urine Bacteria (NEGATIVE) Urine HCG, Qual NEGATIVE (NEGATIVE) 07/26/17 Range/Units 03:35 WBC (4.0-11.0) K/uL RBC (4.30-5.90) M/uL Hgb (12.0-16.0) g/dL Hct (36.0-46.0) % MCV (80.0-98.0) fL MCH (27.0-32.0) pg MCHC (31.0-37.0) g/dL RDW Std Deviation (28.0-62.0) fl RDW Coeff of Jermaine (11.0-15.0) % Plt Count (150-400) K/uL MPV (7.40-12.00) fL Neut % (Auto) (48.0-80.0) % Lymph % (Auto) (16.0-40.0) % [place] % (Auto) (0.0-15.0) % Eos % (Auto) (0.0-7.0) % Baso % (Auto) (0.0-1.5) % Neut # (Auto) (1.4-5.7) K/uL Lymph # (Auto) (0.6-2.4) K/uL [place] # (Auto) (0.0-0.8) K/uL Eos # (Auto) (0.0-0.7) K/uL Baso # (Auto) (0.0-0.1) K/uL Nucleated RBC % /100WBC Nucleated RBCs # K/uL Sodium (136-146) mmol/L Potassium (3.5-5.1) mmol/L Chloride (98-110) mmol/L Carbon Dioxide (21-31) mmol/L BUN (6.0-23.0) mg/dL Creatinine (0.6-1.5) mg/dL Est Cr Clr Drug Dosing Estimated GFR (MDRD) ml/min Glucose (60-110) mg/dL Calcium (8.8-10.8) mg/dL Total Bilirubin (0.1-1.5) mg/dL AST (5-40) IU/L ALT (8-54) IU/L Alkaline Phosphatase (40-150) Total Protein (6.0-8.0) g/dL Albumin (3.5-5.0) g/dL Globulin (2.0-3.5) g/dL Albumin/Globulin Ratio (1.3-2.8) Amylase (10-90) U/L Lipase (7-80) U/L Urine Color YELLOW Urine Appearance CLEAR Urine pH 5.5 (5.0-8.0) Ur Specific [place] <= 1.005 (1.001-1.035) Urine Protein NEGATIVE (NEGATIVE) mg/dL Urine Glucose (UA) NEGATIVE (NEGATIVE) mg/dL Urine Ketones NEGATIVE (NEGATIVE) mg/dL Urine Occult Blood NEGATIVE (NEGATIVE) Urine Nitrite NEGATIVE (NEGATIVE) Urine Bilirubin NEGATIVE (NEGATIVE) Urine Urobilinogen 0.2 (<2.0) EU/dL Ur Leukocyte Esterase NEGATIVE (NEGATIVE) Urine RBC 0-1 (0-2/HPF) Urine WBC 0-1 (0-5/HPF) Ur Epithelial Cells RARE (NONE-FEW) Urine Bacteria RARE (NEGATIVE) Urine HCG, Qual (NEGATIVE) Meds: Medications Generic Name Dose Route Start Last Admin Trade Name Freq PRN Reason Stop Dose Admin Sodium Chloride 1,000 mls @ 999 mls/hr 07/26/17 03:45 07/26/17 03:49 Normal Saline IV 999 mls/hr ASDIRECTED RUTH Administration Discontinued Medications Generic Name Dose Route Start Last Admin Trade Name Nakia PRN Reason Stop Dose Admin Pantoprazole Sodium 40 mg/ 10 mls @ 300 mls/hr 07/26/17 03:42 07/26/17 03:51 Sodium Chloride IVPUSH 07/26/17 03:43 300 mls/hr NOW ONE Administration Iopamidol 100 ml 07/26/17 04:55 07/26/17 04:56 Isovue Multipack-370 (76%) IVPUSH 07/26/17 04:56 100 ml ONETIME STA Administration Ondansetron HCl 4 mg 07/26/17 03:42 07/26/17 03:50 Zofran IVPUSH 07/26/17 03:43 4 mg ONETIME ONE Administration Departure - Departure Time of Disposition: 05:26 Disposition: DC/Tfer to Acute Hospital 02 Condition: Good Clinical Impression: Alcohol abuse, Pancreatitis - Discharge Information Referrals: PCP,None [Primary Care Provider] - - My Orders Last 24 Hours: My Active Orders 07/26/17 03:32 Blood Alcohol [ETHANOL BLOOD MEDICAL] [CHEM] Stat 07/26/17 03:42 Abdomen Pelvis w Cont [CT] Stat 07/26/17 03:45 Sodium Chloride 0.9% [Normal Saline] 1,000 ml IV ASDIRECTED - Assessment/Plan Last 24 Hours: My Active Orders 07/26/17 03:32 Blood Alcohol [ETHANOL BLOOD MEDICAL] [CHEM] Stat 07/26/17 03:42 Abdomen Pelvis w Cont [CT] Stat 07/26/17 03:45 Sodium Chloride 0.9% [Normal Saline] 1,000 ml IV ASDIRECTED
[2017-07-26 05:43] VITALS: BP 108/62
--- NOTE | 2017-07-26 10:22 | CT ---
EXAM DATE: 07/26/17 PATIENT'S AGE: 32 Patient: TAMERA ANDRADE Facility: [place], [place] Site . Site : 1985 Study: CT Abdomen/Pelvis [id number] 4:55:09 AM Ordering Physician: Doctor Elias Final Report: INDICATION: Abdominal pain TECHNIQUE: CT Abdomen and pelvis with i.v. contrast. Coronal and sagittal reformats were obtained. CONTRAST: 100 mL Isovue 370 COMPARISON: 03/10/2017 FINDINGS: Lower chest: There is a 3 mm nodule partially visualized in the right middle lobe and a 4 mm nodule is seen in the left lower lobe. Both are unchanged from prior examination. Liver: Unremarkable. Spleen: Unremarkable. Pancreas: Unremarkable. Gallbladder: Unremarkable. Kidney: Small cortical renal cysts are present bilaterally measuring less than 5 mm. Adrenal: Unremarkable. GI tract: Moderate amount of stool is present throughout the colon which may be due to chronic constipation. The appendix is normal in appearance and size. Vascular: Unremarkable. Lymph: Unremarkable. Peritoneum: Unremarkable. No pneumoperitoneum is seen. No significant ascites is noted. Pelvis: There is a ring-enhancing lesion in the left ovary measures 1.7 cm which is likely a left corpus luteal cyst. Soft tissue: Unremarkable. Bones: Unremarkable for age. IMPRESSIONS: 1. Unremarkable with no CT correlate for the patient`s symptoms seen. Dictated by Mark Espinal MD @ 07/26/2017 5:03:29 AM Dictated by: Mark Espinal MD @ 07/26/2017 05:03:39 (Electronic Signature) Report Signed by Proxy. AHSAN
== END 2017-07-26 06:15 ==
LOC: MW.ED 03:17
DX: K85.90 Acute pancreatitis without necrosis or infection, unspecified (principal); F10.10 Alcohol abuse, uncomplicated; F17.210 Nicotine dependence, cigarettes, uncomplicated; Z79.899 Other long term (current) drug therapy
CPT/HCPCS: 36415; 74177; 80053; 81001; 81025; 82150; 83690; 85025; 96361; 96372; 96374; 96375; 99285; C9113; G0480; J2405; J3411; J7040; Q9967; 99283

== ENCOUNTER 2018-03-15 10:44 | Observation (INO) | payer MEDICAID ==
[2018-03-15] MEDS ORDERED: Ondansetron 4 MG/2 ML SDV IVPUSH ONE ×2 (10:56→11:57)
[2018-03-15] MEDS ORDERED: Sodium Chloride 0.9% 1,000 ML IV ONE ×2 (10:56→12:24)
--- NOTE | 2018-03-15 11:07 | EDM.PDOC ---
ED HPI GENERAL MEDICAL PROBLEM - General Chief Complaint: Gastrointestinal Problem Stated Complaint: pancreatitis Time Seen by Provider: 03/15/18 10:54 Source of Information: Reports: Patient History Limitations: Reports: No Limitations - History of Present Illness INITIAL COMMENTS - FREE TEXT/NARRATIVE: HISTORY AND PHYSICAL: History of present illness: Patient is a 32-year-old female who presents to the emergency room with complaints of abdominal pain and nausea/vomiting. 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 She states her last alcoholic drink was July 2017. Yesterday she started having generalized abdominal pain and was concerned she was having a "flareup" of her pancreatitis. Her primary care doctor in [place] did order labs who stated her amylase was elevated and encouraged her to come to their emergency room. She states she would rather come to our emergency room for evaluation and possible admission. She denies any fever, chills, chest pain, and shortness of breath or cough. Last menstrual period 03/03/2018. Review of systems: As per history of present illness and below otherwise all systems reviewed and negative. Past medical history: As per history of present illness and as reviewed below otherwise noncontributory. Surgical history: As per history of present illness and as reviewed below otherwise noncontributory. Social history: No reported history of drug or alcohol abuse. Family history: As per history of present illness and as reviewed below otherwise noncontributory. Physical exam: General: Developed and well-nourished 32-year-old female. Alert and oriented. Tearful, and toxic appearing and in no acute distress. HEENT: Atraumatic, normocephalic, pupils equal and reactive bilaterally, negative for conjunctival pallor or scleral icterus, mucous membranes moist, throat clear, neck supple, nontender, trachea midline. No drooling or trismus noted. No meningeal signs Lungs: Clear to auscultation, breath sounds equal bilaterally, chest nontender. Heart: S1S2, regular rate and rhythm without overt murmur Abdomen: Soft, nondistended, generalized tenderness in all 4 quadrants. Negative for masses or hepatosplenomegaly. Negative for costovertebral tenderness. Pelvis: Stable nontender. Genitourinary: Deferred. Rectal: Deferred. Skin: Intact, warm, dry. No lesions or rashes noted. Extremities: Atraumatic, negative for cords or calf pain. Neurovascular unremarkable. Neuro: Awake, alert, oriented. Cranial nerves II through XII unremarkable. Cerebellum unremarkable. Motor and sensory unremarkable throughout. Exam nonfocal. Notes: Patient's last admission was 07/26/2017 at our facility for pancreatitis. Patient is agreeable to repeat labs and CT of the abdomen and pelvis at this time. She does have a ride home, her sister, and I will give her some IV pain medications, antinausea and fluids. Continues to have nausea. Additional zofran ordered. She stated she did have 4 out of 10 abdominal pain, mild relief, after her morphine. She states several minutes later this did go back up to an 8 out of 10. Additional medication was ordered. I did share her lab results with her. CT of the abdomen and pelvis are pending. Patient states that she feels uncomfortable going home as she still has moderate amount of abdominal discomfort. I informed her that we could discuss admission for intractable abdominal pain with the hospitalist after the CT results are obtained. She is agreeable to plan of care. Denies any further questions at this time. CT of abdomen/pelvis shows no acute findings in the abdomen or pelvis. There is stable mild prominence of the pancreatic duct. Dr. Laughlin was consulted on this case and has requested a right upper quadrant ultrasound. She is agreeable to admitting this patient for observation for intractable abdominal pain at this time. She is agreeable to plan of care and denies any further questions at this time. Diagnostics: CBC, CMP, amylase, lipase, UA, urine , CT abdomen and pelvis, limited abdominal ultrasound Therapeutics: IV fluid, Zofran, morphine, dilaudid Impression: Intractable abdominal pain History of pancreatitis UTI Plan: Observation admission to [facility] Definitive disposition and diagnosis as appropriate pending reevaluation and review of above. Abdomen Pain Score (Numeric/FACES): 7 - Related Data Allergies Allergy/AdvReac Type Severity Reaction Status Date / Time No Known Allergies Allergy Verified 03/15/18 10:53 Home Meds: Home Meds Sertraline HCl [Zoloft] 20 mg PO DAILY 12/21/16 [History] Promethazine HCl 1 tab PO ASDIRECTED PRN 01/13/17 [History] Ondansetron HCl [Zofran] 4 mg PO BID PRN 03/10/17 [History] ARIPiprazole [Abilify] 2 mg PO DAILY 03/15/18 [History] Past Medical History - Past Health History Medical/Surgical History: Denies Medical/Surgical History Gastrointestinal History: Reports: Pancreatitis, Other (See Below) Other Gastrointestinal History: Gallstones Genitourinary History: Reports: None [employer] History: Reports: PID, 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 History: Reports: Other (See Below) Other 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 History: neck and shoulder pain Psychiatric History: Reports: Anxiety, Depression - Infectious Disease History Infectious Disease History: Reports: Chicken Pox - Past Surgical History Head Surgeries/Procedures: Reports: None Female Surgical History: Reports: Section Social & Family History - Family History Family Medical History: Noncontributory - Caffeine Use Caffeine Use: Reports: None Caffeine Use Comment: 1 cup/day ED ROS GENERAL - Review of Systems Review Of Systems: ROS reveals no pertinent complaints other than HPI. ED EXAM, GI/ABD - Physical Exam Exam: See Below (See dictation) Course - Vital Signs Last Recorded V/S: Last Vital Signs Temp 98.2 F 03/15/18 10:55 Pulse 77 03/15/18 13:23 Resp 16 03/15/18 13:23 BP 118/79 03/15/18 13:23 Pulse Ox 97 03/15/18 13:23 - Orders/Labs/Meds Orders: Active Orders 24 hr Category Date Time Status Admission Status [Patient Status] [ADT] Stat ADT 03/15/18 13:34 Ordered Abdomen Ltd [US] Stat Exams 03/15/18 13:34 Ordered CULTURE URINE [RM] Stat Lab 03/15/18 11:05 Received HCG QUALITATIVE,URINE [URCHEM] Stat Lab 03/15/18 11:05 Ordered UA W/MICROSCOPIC [URIN] Stat Lab 03/15/18 11:05 Ordered Sodium Chloride 0.9% [Normal Saline] 1,000 ml Med 03/15/18 12:24 Active IV STAT Medication Orders Sodium Chloride (Normal Saline) 1,000 mls @ 125 mls/hr IV STAT ONE Stop: 03/15/18 20:23 Last Admin: 03/15/18 12:29 Dose: 125 mls/hr Labs: Laboratory Tests 03/15/18 03/15/18 03/15/18 Range/Units 11:05 11:05 11:07 WBC 6.82 (4.0-11.0) K/uL RBC 4.54 (4.30-5.90) M/uL Hgb 14.2 (12.0-16.0) g/dL Hct 41.3 (36.0-46.0) % MCV 91.0 (80.0-98.0) fL MCH 31.3 (27.0-32.0) pg MCHC 34.4 (31.0-37.0) g/dL RDW Std Deviation 43.5 (28.0-62.0) fl RDW Coeff of Jermaine 13 (11.0-15.0) % Plt Count 219 (150-400) K/uL MPV 9.60 (7.40-12.00) fL Neut % (Auto) 56.2 (48.0-80.0) % Lymph % (Auto) 31.5 (16.0-40.0) % Luna % (Auto) 8.9 (0.0-15.0) % Eos % (Auto) 3.1 (0.0-7.0) % Baso % (Auto) 0.3 (0.0-1.5) % Neut # (Auto) 3.8 (1.4-5.7) K/uL Lymph # (Auto) 2.2 (0.6-2.4) K/uL Luna # (Auto) 0.6 (0.0-0.8) K/uL Eos # (Auto) 0.2 (0.0-0.7) K/uL Baso # (Auto) 0.0 (0.0-0.1) K/uL Nucleated RBC % 0.0 /100WBC Nucleated RBCs # 0 K/uL Sodium (136-145) mmol/L Potassium (3.5-5.1) mmol/L Chloride (98-107) mmol/L Carbon Dioxide (21.0-32.0) mmol/L BUN (7.0-18.0) mg/dL Creatinine (0.6-1.0) mg/dL Est Cr Clr Drug Dosing mL/min Estimated GFR (MDRD) ml/min Glucose (74-106) mg/dL Calcium (8.5-10.1) mg/dL Total Bilirubin (0.2-1.0) mg/dL AST (15-37) IU/L ALT (14-63) IU/L Alkaline Phosphatase (46-116) U/L Total Protein (6.4-8.2) g/dL Albumin (3.4-5.0) g/dL Globulin (2.0-3.5) g/dL Albumin/Globulin Ratio (1.3-2.8) Amylase (25-115) U/L Lipase (73-393) U/L Urine Color YELLOW Urine Appearance SLT CLOUDY Urine pH 6.0 (5.0-8.0) Ur Specific [place] 1.020 (1.001-1.035) Urine Protein NEGATIVE (NEGATIVE) mg/dL Urine Glucose (UA) NEGATIVE (NEGATIVE) mg/dL Urine Ketones NEGATIVE (NEGATIVE) mg/dL Urine Occult Blood NEGATIVE (NEGATIVE) Urine Nitrite NEGATIVE (NEGATIVE) Urine Bilirubin NEGATIVE (NEGATIVE) Urine Urobilinogen 0.2 (<2.0) EU/dL Ur Leukocyte Esterase NEGATIVE (NEGATIVE) Urine RBC 0-2 (0-2/HPF) Urine WBC 1-3 (0-5/HPF) Ur Epithelial Cells MODERATE (NONE-FEW) Amorphous Sediment MODERATE (NEGATIVE) Urine Bacteria 1+ H (NEGATIVE) Urine Yeast FEW Urine HCG, Qual NEGATIVE (NEGATIVE) 03/15/18 Range/Units 11:07 WBC (4.0-11.0) K/uL RBC (4.30-5.90) M/uL Hgb (12.0-16.0) g/dL Hct (36.0-46.0) % MCV (80.0-98.0) fL MCH (27.0-32.0) pg MCHC (31.0-37.0) g/dL RDW Std Deviation (28.0-62.0) fl RDW Coeff of Jermaine (11.0-15.0) % Plt Count (150-400) K/uL MPV (7.40-12.00) fL Neut % (Auto) (48.0-80.0) % Lymph % (Auto) (16.0-40.0) % Luna % (Auto) (0.0-15.0) % Eos % (Auto) (0.0-7.0) % Baso % (Auto) (0.0-1.5) % Neut # (Auto) (1.4-5.7) K/uL Lymph # (Auto) (0.6-2.4) K/uL Luna # (Auto) (0.0-0.8) K/uL Eos # (Auto) (0.0-0.7) K/uL Baso # (Auto) (0.0-0.1) K/uL Nucleated RBC % /100WBC Nucleated RBCs # K/uL Sodium 139 (136-145) mmol/L Potassium 3.8 (3.5-5.1) mmol/L Chloride 104 (98-107) mmol/L Carbon Dioxide 25.9 (21.0-32.0) mmol/L BUN 15 (7.0-18.0) mg/dL Creatinine 0.8 (0.6-1.0) mg/dL Est Cr Clr Drug Dosing 90.00 mL/min Estimated GFR (MDRD) > 60.0 ml/min Glucose 103 (74-106) mg/dL Calcium 8.6 (8.5-10.1) mg/dL Total Bilirubin 0.2 (0.2-1.0) mg/dL AST 14 L (15-37) IU/L ALT 15 (14-63) IU/L Alkaline Phosphatase 42 L (46-116) U/L Total Protein 6.8 (6.4-8.2) g/dL Albumin 3.7 (3.4-5.0) g/dL Globulin 3.1 (2.0-3.5) g/dL Albumin/Globulin Ratio 1.2 L (1.3-2.8) Amylase 55 (25-115) U/L Lipase 250 (73-393) U/L Urine Color Urine Appearance Urine pH (5.0-8.0) Ur Specific [place] (1.001-1.035) Urine Protein (NEGATIVE) mg/dL Urine Glucose (UA) (NEGATIVE) mg/dL Urine Ketones (NEGATIVE) mg/dL Urine Occult Blood (NEGATIVE) Urine Nitrite (NEGATIVE) Urine Bilirubin (NEGATIVE) Urine Urobilinogen (<2.0) EU/dL Ur Leukocyte Esterase (NEGATIVE) Urine RBC (0-2/HPF) Urine WBC (0-5/HPF) Ur Epithelial Cells (NONE-FEW) Amorphous Sediment (NEGATIVE) Urine Bacteria (NEGATIVE) Urine Yeast Urine HCG, Qual (NEGATIVE) Meds: Medications Generic Name Dose Route Start Last Admin Trade Name Freq PRN Reason Stop Dose Admin Sodium Chloride 1,000 mls @ 125 mls/hr 03/15/18 12:24 03/15/18 12:29 Normal Saline IV 03/15/18 20:23 125 mls/hr STAT ONE Administration Discontinued Medications Generic Name Dose Route Start Last Admin Trade Name Nakia PRN Reason Stop Dose Admin Hydromorphone HCl 0.5 mg 03/15/18 12:22 03/15/18 12:29 Dilaudid IVPUSH 03/15/18 12:23 0.5 mg ONETIME ONE Administration Sodium Chloride 1,000 mls @ 999 mls/hr 03/15/18 10:56 03/15/18 11:16 Normal Saline IV 03/15/18 11:56 999 mls/hr STAT ONE Administration Iopamidol 100 ml 03/15/18 13:01 03/15/18 13:04 Isovue Multipack-370 (76%) IVPUSH 03/15/18 13:02 100 ml ONETIME STA Administration Morphine Sulfate 4 mg 03/15/18 11:08 03/15/18 11:21 Morphine IVPUSH 03/15/18 11:09 Not Given ONETIME ONE Morphine Sulfate 4 mg 03/15/18 11:20 03/15/18 11:21 Morphine IVPUSH 03/15/18 11:21 4 mg ONETIME ONE Administration Morphine Sulfate Confirm 03/15/18 11:19 03/15/18 11:26 Morphine Administered 03/15/18 11:20 Not Given Dose 4 mg .ROUTE .STK-MED ONE Ondansetron HCl 4 mg 03/15/18 10:56 03/15/18 11:16 Zofran IVPUSH 03/15/18 10:57 4 mg ONETIME ONE Administration Ondansetron HCl 4 mg 03/15/18 11:57 03/15/18 12:02 Zofran IVPUSH 03/15/18 11:58 4 mg ONETIME ONE Administration Departure - Departure Time of Disposition: 13:36 Disposition: Home, Self-Care 01 Clinical Impression: Intractable abdominal pain, History of pancreatitis - Discharge Information Referrals: PCP,Not In Area [Primary Care Provider] - Forms: ED Department Discharge - My Orders Last 24 Hours: My Active Orders 03/15/18 11:05 CULTURE URINE [RM] Stat HCG QUALITATIVE,URINE [URCHEM] Stat UA W/MICROSCOPIC [URIN] Stat 03/15/18 12:24 Sodium Chloride 0.9% [Normal Saline] 1,000 ml IV STAT 03/15/18 13:34 Admission Status [Patient Status] [ADT] Stat Abdomen Ltd [US] Stat - Assessment/Plan Last 24 Hours: My Active Orders 03/15/18 11:05 CULTURE URINE [RM] Stat HCG QUALITATIVE,URINE [URCHEM] Stat UA W/MICROSCOPIC [URIN] Stat 03/15/18 12:24 Sodium Chloride 0.9% [Normal Saline] 1,000 ml IV STAT 03/15/18 13:34 Admission Status [Patient Status] [ADT] Stat Abdomen Ltd [US] Stat
[2018-03-15] MEDS ORDERED: Morphine 4 MG/ML Syringe IVPUSH ONE (11:08)
[2018-03-15] MEDS ORDERED: Morphine 2 MG/ML Syringe ONE (11:19)
[2018-03-15] MEDS ORDERED: Morphine 2 MG/ML Syringe IVPUSH ONE (11:20)
[2018-03-15 11:56] LABS: CHLORIDE,CL 104 mmol/L (98-107); SODIUM,NA 139 mmol/L (136-145)
[2018-03-15] MEDS ORDERED: HYDROmorphone 2 MG/ML SDV IVPUSH ONE (12:22)
[2018-03-15] MEDS ORDERED: Iopamidol 755 MG/ML 500 ML Multipack Bottle IVPUSH STA (13:01)
--- NOTE | 2018-03-15 13:30 | CT ---
CT of the abdomen and pelvis with contrast. HISTORY: Pain TECHNIQUE: Axial CT images were obtained of the abdomen and pelvis following administration of 100 mL of Isovue-370 in the right antecubital fossa without complication. Coronal and sagittal reconstructi ons obtained. FINDINGS: The lung bases are clear, no pleural effusion. Tiny subpleural nodule within the left lower lobe late rally, likely benign given the patient's age. The liver, spleen, adrenal glands, and pancreas appear normal. The common bile duct appears normal ho wever the pancreatic duct appears dilated up to 5 mm. No peripancreatic fluid collections. The gallbl adder appears normal. No bulky retroperitoneal lymphadenopathy or abdominal ascites. Vague retroperit isaacs soft tissue prominence again noted and not significantly changed. The kidneys enhance and function symmetrically without evidence of obstructive uropathy. Tiny renal c ortical cysts. The large and small bowel are normal in caliber without evidence of obstruction. Appendix is normal. The uterus and ovaries are grossly unremarkable. The urinary bladder is normal. There is no bulky pel brady lymphadenopathy or free pelvic fluid. No suspicious osseous abnormalities identified. IMPRESSION: 1. No acute findings identified within the abdomen or pelvis. 2. Stable mild prominence of the pancreatic duct.
--- NOTE | 2018-03-15 14:20 | US ---
EXAMINATION: Right upper quadrant ultrasound HISTORY: Pain COMPARISON: CT from the same day TECHNIQUE: Grayscale and color Doppler imaging obtained of the right upper quadrant. FINDINGS: Mild prominence of the pancreatic duct, otherwise the visualized pancreas appears normal. T he gallbladder wall thickness is normal. No pericholecystic fluid or shadowing gallstones. The common bile duct is normal at 3 mm. Right kidney measures at least 11.9 cm [id number] without evidence of hydronephrosis. The liver is normal in contour, echogenicity, and size. IMPRESSION: 1. Mildly prominent pancreatic duct, otherwise unremarkable right upper quadrant ultrasound.
[2018-03-15] MEDS: Sodium Chloride 0.9% 1,000 ML IV SCH ×2 (14:45→18:48)
[2018-03-15] MEDS ORDERED: Pantoprazole 40 MG Vial IV SCH (14:45)
--- NOTE | 2018-03-15 14:49 | PCM.HP ---
H&P History of Present Illness - General Date of Service: 03/15/18 Admit Problem/Dx: Admission Diagnosis/Problem Admission Diagnosis/Problem Intractable abdominal pain Source of Information: Patient History Limitations: Reports: No Limitations - History of Present Illness Initial Comments - Free Text/Narative: This 32 year old female with pmh of alcoholic pancreatitis and IC presented to the ED today with complaints of abdominal pain with nausea and vomiting. She reports this started approximately 2 days ago. She was seen by her PCP in [place] yesterday, who carlos manuel labwork and she reports he lipase was elevated at 400. She was directed to go to their ED, but opted to come to [facility] [place] today. She reports the pain continues approximately 8/10 at its worse. She has been unable to keep anything down for the last two days. She denies alcohol use since July 2017, her first pancreatitis event. She reports epigastric pain, that radiates straight to the back and up to her shoulders. No heartburn. No lower abdominal pain. She does reports diarrhea, with yellow loose stool for the past couple days as well. She denies recent antibiotic use, questionable foods or out of the country travel. She denies fevers, chills, cough or other URI symptoms. No chest pain or SOB. No swelling of lower legs or focal neurologic deficits. She denies headache. In the ED, labwork otherwise WNL. Amylase 55, lipase 250, bili 0.2 and other LFTs WNL. Ua +1 bacteria, 1-3 WBC, nitrites or leukocyte esterase. Denies UTI symptoms. VS were stable, BP 110-120/70s, HR 60-70s. She was treated with NS 1 l bolus, Zofran 4 mg x 2 Morphine x1, and then dilaudid x 1, which she reports helped her pain better than Morphine. CT of abdomen pelvis revealed stable mildly prominence of pancreatic duct. Abd U/S obtained as well with contnued to show mildly prominent pancreatic duct. no stones and no cholescystitis. She will be admitted observation for abdominal pain, possible pancreatitis. Abdomen Pain Score (Numeric/FACES): 5 - Related Data Allergies/Adverse Reactions: Allergies Allergy/AdvReac Type Severity Reaction Status Date / Time No Known Allergies Allergy Verified 03/15/18 10:53 Home Medications: Home Meds Promethazine HCl 1 tab PO ASDIRECTED PRN 01/13/17 [History] Ondansetron HCl [Zofran] 4 mg PO BID PRN 03/10/17 [History] ARIPiprazole [Abilify] 2 mg PO DAILY 03/15/18 [History] Past Medical History - Past Health History Medical/Surgical History: Denies Medical/Surgical History Cardiovascular History: Reports: None. Denies: CAD, High Cholesterol, Hypertension, ID Respiratory History: Reports: None. Denies: Asthma, COPD Gastrointestinal History: Reports: Pancreatitis Genitourinary History: Reports: Other (See Below) (interstitial cystitis). Denies: Chronic Renal Insuffiency [employer] History: Reports: PID, 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 History: Reports: None Neurological History: Reports: None. Denies: CVA, Headaches, Chronic, TIA Psychiatric History: Reports: Anxiety, Depression Endocrine/Metabolic History: Reports: None. Denies: Diabetes, Type II - Infectious Disease History Infectious Disease History: Reports: Chicken Pox - Past Surgical History Head Surgeries/Procedures: Reports: None Female Surgical History: Reports: Section Social & Family History - Family History Family Medical History: Noncontributory Oncologic: Reports: Pancreatic - Tobacco Use Smoking Status *Q: Current Every Day Smoker Tobacco Use Within Last Twelve Months: Cigarettes Years of Tobacco use: 10 Packs/Tins Daily: 0.5 - Caffeine Use Caffeine Use: Reports: None Caffeine Use Comment: 1 cup/day - Alcohol Use Alcohol Use History: Yes Date of Last Drink: 07/25/17 - Recreational Drug Use Recreational Drug Use: No H&P Review of Systems - Review of Systems: Review Of Systems: See Below General: Reports: Malaise, Decreased Appetite. Denies: Fever, Chills, Fatigue HEENT: Reports: No Symptoms. Denies: Headaches, Sinus Congestion, Sore Throat Pulmonary: Reports: No Symptoms. Denies: Shortness of Breath, Cough, Sputum Cardiovascular: Reports: No Symptoms. Denies: Chest Pain, Palpitations, Edema Gastrointestinal: Reports: Abdominal Pain (epigastric with radiation to back), Diarrhea, Decreased Appetite, Flatus, Nausea, Vomiting. Denies: Black Stool, Bloody Stool, Hematemesis Genitourinary: Reports: No Symptoms. Denies: Dysuria, Frequency, Burning 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: Reports: No Symptoms Skin: Reports: No Symptoms Psychiatric: Reports: No Symptoms. Denies: Anxiety, Agitation Exam - Exam Exam: See Below - Vital Signs Vital Signs: Last Vital Signs Temp 98 F 03/15/18 14:30 Pulse 65 03/15/18 14:30 Resp 16 03/15/18 14:30 BP 107/55 L 03/15/18 14:30 Pulse Ox 100 03/15/18 14:30 Weight: 79.379 kg - Exam Quality Assessment: DVT Prophylaxis (SCDs). No: Supplemental Oxygen General: Alert, Oriented, Cooperative HEENT: Conjunctiva Clear, Posterior Pharynx Clear. No: Mucosa Moist & [place] ( dry ) Lungs: Clear to Auscultation, Normal Respiratory Effort Cardiovascular: Regular Rate, Regular Rhythm GI/Abdominal Exam: Normal Bowel Sounds, Soft, No Distention, Tender (epigastric , neg quiles's sign. No lower abodminal pain) Back Exam: Normal Inspection, Full Range of Motion Extremities: Normal Inspection, Normal Range of Motion, Non-Tender, No Pedal Edema Neuro Extensive - Mental Status: Alert, Oriented x3 Psychiatric: Alert, Normal Affect, Normal Mood - Patient Data Lab Results Last 24 hrs: Laboratory Results - last 24 hr 03/15/18 03/15/18 03/15/18 Range/Units 11:05 11:05 11:07 WBC 6.82 (4.0-11.0) K/uL RBC 4.54 (4.30-5.90) M/uL Hgb 14.2 (12.0-16.0) g/dL Hct 41.3 (36.0-46.0) % MCV 91.0 (80.0-98.0) fL MCH 31.3 (27.0-32.0) pg MCHC 34.4 (31.0-37.0) g/dL RDW Std Deviation 43.5 (28.0-62.0) fl RDW Coeff of Jermaine 13 (11.0-15.0) % Plt Count 219 (150-400) K/uL MPV 9.60 (7.40-12.00) fL Neut % (Auto) 56.2 (48.0-80.0) % Lymph % (Auto) 31.5 (16.0-40.0) % [place] % (Auto) 8.9 (0.0-15.0) % Eos % (Auto) 3.1 (0.0-7.0) % Baso % (Auto) 0.3 (0.0-1.5) % Neut # (Auto) 3.8 (1.4-5.7) K/uL Lymph # (Auto) 2.2 (0.6-2.4) K/uL [place] # (Auto) 0.6 (0.0-0.8) K/uL Eos # (Auto) 0.2 (0.0-0.7) K/uL Baso # (Auto) 0.0 (0.0-0.1) K/uL Nucleated RBC % 0.0 /100WBC Nucleated RBCs # 0 K/uL Sodium (136-145) mmol/L Potassium (3.5-5.1) mmol/L Chloride (98-107) mmol/L Carbon Dioxide (21.0-32.0) mmol/L BUN (7.0-18.0) mg/dL Creatinine (0.6-1.0) mg/dL Est Cr Clr Drug Dosing mL/min Estimated GFR (MDRD) ml/min Glucose (74-106) mg/dL Calcium (8.5-10.1) mg/dL Total Bilirubin (0.2-1.0) mg/dL AST (15-37) IU/L ALT (14-63) IU/L Alkaline Phosphatase (46-116) U/L Total Protein (6.4-8.2) g/dL Albumin (3.4-5.0) g/dL Globulin (2.0-3.5) g/dL Albumin/Globulin Ratio (1.3-2.8) Amylase (25-115) U/L Lipase (73-393) U/L Urine Color YELLOW Urine Appearance SLT CLOUDY Urine pH 6.0 (5.0-8.0) Ur Specific [place] 1.020 (1.001-1.035) Urine Protein NEGATIVE (NEGATIVE) mg/dL Urine Glucose (UA) NEGATIVE (NEGATIVE) mg/dL Urine Ketones NEGATIVE (NEGATIVE) mg/dL Urine Occult Blood NEGATIVE (NEGATIVE) Urine Nitrite NEGATIVE (NEGATIVE) Urine Bilirubin NEGATIVE (NEGATIVE) Urine Urobilinogen 0.2 (<2.0) EU/dL Ur Leukocyte Esterase NEGATIVE (NEGATIVE) Urine RBC 0-2 (0-2/HPF) Urine WBC 1-3 (0-5/HPF) Ur Epithelial Cells MODERATE (NONE-FEW) Amorphous Sediment MODERATE (NEGATIVE) Urine Bacteria 1+ H (NEGATIVE) Urine Yeast FEW Urine HCG, Qual NEGATIVE (NEGATIVE) 03/15/18 Range/Units 11:07 WBC (4.0-11.0) K/uL RBC (4.30-5.90) M/uL Hgb (12.0-16.0) g/dL Hct (36.0-46.0) % MCV (80.0-98.0) fL MCH (27.0-32.0) pg MCHC (31.0-37.0) g/dL RDW Std Deviation (28.0-62.0) fl RDW Coeff of Jermaine (11.0-15.0) % Plt Count (150-400) K/uL MPV (7.40-12.00) fL Neut % (Auto) (48.0-80.0) % Lymph % (Auto) (16.0-40.0) % [place] % (Auto) (0.0-15.0) % Eos % (Auto) (0.0-7.0) % Baso % (Auto) (0.0-1.5) % Neut # (Auto) (1.4-5.7) K/uL Lymph # (Auto) (0.6-2.4) K/uL [place] # (Auto) (0.0-0.8) K/uL Eos # (Auto) (0.0-0.7) K/uL Baso # (Auto) (0.0-0.1) K/uL Nucleated RBC % /100WBC Nucleated RBCs # K/uL Sodium 139 (136-145) mmol/L Potassium 3.8 (3.5-5.1) mmol/L Chloride 104 (98-107) mmol/L Carbon Dioxide 25.9 (21.0-32.0) mmol/L BUN 15 (7.0-18.0) mg/dL Creatinine 0.8 (0.6-1.0) mg/dL Est Cr Clr Drug Dosing 90.00 mL/min Estimated GFR (MDRD) > 60.0 ml/min Glucose 103 (74-106) mg/dL Calcium 8.6 (8.5-10.1) mg/dL Total Bilirubin 0.2 (0.2-1.0) mg/dL AST 14 L (15-37) IU/L ALT 15 (14-63) IU/L Alkaline Phosphatase 42 L (46-116) U/L Total Protein 6.8 (6.4-8.2) g/dL Albumin 3.7 (3.4-5.0) g/dL Globulin 3.1 (2.0-3.5) g/dL Albumin/Globulin Ratio 1.2 L (1.3-2.8) Amylase 55 (25-115) U/L Lipase 250 (73-393) U/L Urine Color Urine Appearance Urine pH (5.0-8.0) Ur Specific [place] (1.001-1.035) Urine Protein (NEGATIVE) mg/dL Urine Glucose (UA) (NEGATIVE) mg/dL Urine Ketones (NEGATIVE) mg/dL Urine Occult Blood (NEGATIVE) Urine Nitrite (NEGATIVE) Urine Bilirubin (NEGATIVE) Urine Urobilinogen (<2.0) EU/dL Ur Leukocyte Esterase (NEGATIVE) Urine RBC (0-2/HPF) Urine WBC (0-5/HPF) Ur Epithelial Cells (NONE-FEW) Amorphous Sediment (NEGATIVE) Urine Bacteria (NEGATIVE) Urine Yeast Urine HCG, Qual (NEGATIVE) Result Diagrams: 03/15/18 11:07 03/15/18 11:07 *Q Meaningful Use (ADM) - VTE Risk Assess *Q Each Risk Factor Represents 1 Point: None Total Score 1 Point Risk Factors: 0 Each Risk Factor Represents 2 Points: None Total Score 2 Point Risk Factors: 0 Each Risk Factor Represents 3 Points: None Total Score 3 Point Risk Factors: 0 Each Risk Factor Represents 5 Points: None Total Score 5 Point Risk Factors: 0 Venous Thromboembolism Risk Factor Score *Q: 0 - Problem List (1) Pancreatitis SNOMED Code(s): 17923077 ICD Code: K85.90 - ACUTE PANCREATITIS WITHOUT NECROSIS OR INFECTION, UNSP Status: Acute Current Visit: No Qualifiers: Chronicity: acute Acute pancreatitis complication: no infection or necrosis (2) Abdominal pain SNOMED Code(s): 16792352 ICD Code: R10.9 - UNSPECIFIED ABDOMINAL PAIN Status: Acute Current Visit : No (3) Nausea & vomiting SNOMED Code(s): 44856063 ICD Code: R11.2 - NAUSEA WITH VOMITING, UNSPECIFIED Status: Acute Current Visit: Yes (4) History of alcohol abuse SNOMED Code(s): 408554426 ICD Code: Z87.898 - PERSONAL HISTORY OF OTHER SPECIFIED CONDITIONS Status: Chronic Current Visit: Yes (5) Depression SNOMED Code(s): 87770768 ICD Code: F32.9 - MAJOR DEPRESSIVE DISORDER, SINGLE EPISODE, UNSPECIFIED Status: Chronic Current Visit: Yes (6) Anxiety SNOMED Code(s): 95353201 ICD Code: F41.9 - ANXIETY DISORDER, UNSPECIFIED Status: Chronic Current Visit: Yes (7) History of pancreatitis SNOMED Code(s): 56316052104427 ICD Code: Z87.19 - PERSONAL HISTORY OF OTHER DISEASES OF THE DIGESTIVE SYSTEM Status: Chronic Current Visit: Yes Problem List Initiated/Reviewed/Updated: Yes Orders Last 24hrs: Active Orders 24 hr Category Date Time Status Admission Status [Patient Status] [ADT] Stat ADT 03/15/18 13:34 Active Intake and Output [RC] QSHIFT Care 03/15/18 14:39 Ordered May Shower [RC] ASDIRECTED Care 03/15/18 14:38 Ordered Oxygen Therapy [RC] PRN Care 03/15/18 14:38 Ordered Up ad Yamileth [RC] ASDIRECTED Care 03/15/18 14:38 Ordered VTE/DVT Education [RC] PER UNIT ROUTINE Care 03/15/18 14:38 Ordered Vital Signs [RC] Q4H Care 03/15/18 14:38 Ordered NPO [Nothing Per Oral Diet] [DIET] Diet 03/15/18 Dinner Ordered CBC WITH AUTO DIFF [HEME] AM Lab 03/16/18 05:11 Ordered COMPREHENSIVE METABOLIC PN,CMP [CHEM] AM Lab 03/16/18 05:11 Ordered CULTURE URINE [RM] Stat Lab 03/15/18 11:05 Received HCG QUALITATIVE,URINE [URCHEM] Stat Lab 03/15/18 11:05 Ordered UA W/MICROSCOPIC [URIN] Stat Lab 03/15/18 11:05 Ordered HYDROmorphone [Dilaudid] Med 03/15/18 14:38 Ordered 0.5 mg IVPUSH Q3H PRN Ondansetron [Zofran] Med 03/15/18 14:38 Ordered 4 mg IVPUSH Q4H PRN Pantoprazole [ProTONIX IV] Med 03/15/18 14:45 Ordered 40 mg IV Q24H Promethazine [Phenergan] Med 03/15/18 14:38 Ordered 12.5 mg IM Q6H PRN Sodium Chloride 0.9% [Normal Saline] 1,000 ml Med 03/15/18 14:45 Ordered IV ASDIRECTED Sequential Compression Device [OM.PC] Per Unit Routine Oth 03/15/18 14:39 Ordered Resuscitation Status Routine Resus Stat 03/15/18 14:38 Ordered Medication Orders Hydromorphone HCl (Dilaudid) 0.5 mg IVPUSH Q3H PRN PRN Reason: Pain (severe 7-10) Sodium Chloride (Normal Saline) 1,000 mls @ 200 mls/hr IV ASDIRECTED RUTH Ondansetron HCl (Zofran) 4 mg IVPUSH Q4H PRN PRN Reason: Nausea Pantoprazole Sodium (Protonix Iv) 40 mg IV Q24H RUTH Promethazine HCl (Phenergan) 12.5 mg IM Q6H PRN PRN Reason: Nausea Assessment/Plan Comment:: This 32 year old female admitted with acute on chronic pancreatitis with abdominal pain, nausea and vomiting. 1. Acute on chronic pancreatitis: Lipase normal today. symptoms correlate with pancreatitis, likely acute on chronic. Will place on bowel rest, ice chips ok. Dilaudid for pain, Zofran and Phenergan PRN for nausea. Protonix IV daily. Monitor labwork in am. 2. Depression/Anxiety: Stable. Continue Abilify and Sertraline with sip of water. VTE prophylaxis: SCDs
[2018-03-15] MEDS ORDERED: Nicotine 14 MG/24 Hr Patch TRDERM SCH (15:00)
[2018-03-15] MEDS: Promethazine 25 MG/ML SDV IM PRN ×2 (15:09→21:25)
[2018-03-15] MEDS: HYDROmorphone 1 MG/ML Syringe IVPUSH PRN ×3 (15:27→22:50)
[2018-03-15] MEDS: Ondansetron 4 MG/2 ML SDV IVPUSH PRN ×2 (18:55→22:56)
[2018-03-15 23:00] VITALS: BP 99/58
--- NOTE | 2018-03-16 11:10 | PCM.SN ---
- Free Text/Narrative Note: Patient left AMA 03/15 2350 prior to being seen by MD or other provider. Nursing notified Dr Laughlin of patient leaving.
== END 2018-03-15 23:50 | disposition left against medical advice (07) ==
LOC: MW.ED 10:44 → MW.MS 13:34
PROVIDERS: ADMIT Internal Medicine; ATTEND Internal Medicine
DX: R10.84 Generalized abdominal pain (principal); R11.2 Nausea with vomiting, unspecified; F17.210 Nicotine dependence, cigarettes, uncomplicated; N39.0 Urinary tract infection, site not specified; F41.9 Anxiety disorder, unspecified; F32.9 Major depressive disorder, single episode, unspecified; Z87.19 Personal history of other diseases of the digestive system; Z87.898 Personal history of other specified conditions; Z79.899 Other long term (current) drug therapy
CPT/HCPCS: 36415; 74177; 76705; 80053; 80061; 81001; 81025; 82150; 83690; 85025; 87086; 96361; 96374; 96375; 96376; 99285; A9270; C9113; J1170; J2270; J2405; J2550; J7040; Q9967; 96372; 99284; G0378